=== PATIENT | male | born 1965 | race Caucasian/White ===

== ENCOUNTER 2017-06-16 12:18 | Emergency (ER) ==
[~2017-06-16] VITALS: Ht 172.7 cm; Wt 77.0 kg
[2017-06-16 12:27] VITALS: O2SAT 98
[2017-06-16 12:41] VITALS: PULSE 88; RESP 18; TEMP 98.7; O2SAT 96
[2017-06-16 12:44] VITALS: BP 113/72; PULSE 87; RESP 18; O2SAT 98
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
== END 2017-06-16 15:22 | disposition home or self-care (01) ==
LOC: NEPE 12:18
DX: S09.90XA Unspecified injury of head, initial encounter (principal); V86.96XA Unspecified occupant of dirt bike or motor/cross bike injured in nontraffic accident, initial encounter
CPT/HCPCS: 70450; 72125; 99284; 99291; G0390